=== PATIENT | male | born 1995 | race Caucasian/White ===

== ENCOUNTER 2017-11-17 15:09 | Emergency (ER) | payer OTHER ==
[2017-11-17] MEDS ORDERED: TORAdol 30 mg Injection IV ONE (15:17)
[2017-11-17] MEDS ORDERED: Pepcid 20 MG VIAL IV ONE ×2 (15:17→15:23)
[2017-11-17] MEDS ORDERED: Vistaril 50 MG/ML IM ONE (15:18)
[2017-11-17] MEDS ORDERED: Sodium Chloride 0.9% 1000 ML 1,000 ML IV STA (15:19)
[2017-11-17] MEDS ORDERED: VISTARIL 100MG/2ML IM ONE (15:22)
[2017-11-17] MEDS ORDERED: TORAdol 30 mg Injection ONE (15:22)
[2017-11-17] MEDS ORDERED: Sodium Chloride 0.9% 1000 ML 1,000 ML ONE (15:23)
--- NOTE | 2017-11-17 15:29 | ERPHSYRPT ---
- History of Present Illness Time Seen by Provider: 11/17/17 15:10 Source: patient, family () Patient Subjective Stated Complaint: PT states "I was woke up at 5 am this morning and had horrible chest pain. I thought it was acid reflux and drank some milk but that did not help. The pain goes into my sides and down into my legs." Triage Nursing Assessment: Pt alert and oriented X 3, skin pwd. pt ambulates without difficulty, able to speak in clear full sentence. No apparent respiratory distress. Physician History: CC: chest pain Hx: 22 y/o patient of Dr Oh reports a hx of DM but does not take medications as instructed due to his insurance. He works at [employer]. He has feeling of chest pain. Went home from work yesterday and had chills. He thought he had reflux and made himself vomit. No cough. He is a smoker. Reports former drug use. Not short of air. Pain all over chest. Denies fever but has mylagias and muscle aches. Reports muscle cramp yesterday from the right nipple to the neck to the top of his head. He had his rub the top of his head. Timing/Duration: today, yesterday Severity: moderate Allergies/Adverse Reactions: Penicillins Allergy (Mild, Verified 08/31/14 06:00) Home Medications: No Reportable Medications [No Reported Medications] 11/17/17 [History] Hx Tetanus, Diphtheria Vaccination/Date Given: Yes Hx Influenza Vaccination/Date Given: No Hx Pneumococcal Vaccination/Date Given: No Immunizations Up to Date: Yes - Review of Systems Constitutional: Chills, Malaise, No Fever Eyes: No Symptoms Ears, Nose, & Throat: No Throat Pain Respiratory: No Cough, No Dyspnea Cardiac: Chest Pain Abdominal/Gastrointestinal: Vomiting (forced X 1), No Abdominal Pain, No Nausea , No Diarrhea Genitourinary Symptoms: No Dysuria Skin: No Rash Neurological: Headache, No Focal Weakness, No Parasthesia Psychological: Drug Abuse (formerly) All Other Systems: Reviewed and Negative - Past Medical History Pertinent Past Medical History: Yes Neurological History: No Pertinent History ENT History: No Pertinent History Cardiac History: No Pertinent History Respiratory History: No Pertinent History Endocrine Medical History: Diabetes Type II Musculoskeletal History: No Pertinent History GI Medical History: No Pertinent History History: No Pertinent History Psycho-Social History: No Pertinent History Male Reproductive Disorders: No Pertinent History - Past Surgical History Past Surgical History: No Neuro Surgical History: No Pertinent History Cardiac: No Pertinent History Respiratory: No Pertinent History Gastrointestinal: No Pertinent History Genitourinary: No Pertinent History Musculoskeletal: No Pertinent History - Social History Smoking Status: Current every day smoker How long have you smoked: years Exposure to second hand smoke: Yes Drug Use: none Patient Lives Alone: No Significant Family History: no pertinent family hx - Nursing Vital Signs Nursing Vital Signs: Initial Vital Signs Temperature 97.3 F 11/17/17 15:11 Pulse Rate 70 11/17/17 15:11 Respiratory Rate 18 11/17/17 15:11 Blood Pressure 136/97 11/17/17 15:11 O2 Sat by Pulse Oximetry 98 11/17/17 15:11 Pain Scale Pain Intensity 10 - Physical Exam General Appearance: alert, other (ambulatory, anxious, hypersensitive pain all over his body when touched everywhere) Eye Exam: PERRL/EOMI Ears, Nose, Throat Exam: normal ENT inspection, moist mucous membranes Neck Exam: normal inspection, non-tender, supple Respiratory Exam: normal breath sounds Cardiovascular Exam: regular rate/rhythm, No murmur, No friction rub, No gallop Gastrointestinal/Abdomen Exam: soft, No tenderness, No distention Male Genitalia Exam: normal genitalia Back Exam: normal inspection, No CVA tenderness, No vertebral tenderness Extremity Exam: normal inspection, normal range of motion Neurologic Exam: alert, oriented x 3, cooperative, smt operator II-XII nml as tested, sensation nml, No motor deficits Skin Exam: warm, dry, No rash SpO2 Interpretation: normal SpO2: 98 Oxygen Delivery: Room Air - Course Nursing assessment & vital signs reviewed: Yes EKG Interpreted by Me: RATE (73), Sinus Rhythm, NORMAL AXIS, NORMAL INTERVALS ( QTc 421), 1st degree AV Block, NORMAL QRS, NORMAL ST-T - Radiology Exams cxr X-ray Interpretation: Teleradiologist Report, Negative (minimal bony thoracic degenerative changes) Ordered Tests: Active Orders 24 hr Category Date Time Status Clean Catch Urine Specimen STAT Care 11/17/17 15:17 Active EKG-ER Only STAT Care 11/17/17 15:17 Active IV Insertion STAT Care 11/17/17 15:17 Active CHEST 2 VIEWS (PA AND LAT) Stat Exams 11/17/17 15:17 Completed CBC W DIFF Stat Lab 11/17/17 15:32 Completed CMP Routine Lab 11/17/17 15:32 Completed LIPASE Routine Lab 11/17/17 15:32 Completed Manual Differential NC Stat Lab 11/17/17 15:32 Completed TROPONIN Q3H Lab 11/17/17 15:32 Completed TROPONIN Q3H Lab 11/17/17 18:30 Ordered TROPONIN Q3H Lab 11/17/17 21:30 Ordered TROPONIN Q3H Lab 11/18/17 00:30 Ordered TROPONIN Q3H Lab 11/18/17 03:30 Ordered UA W/RFX UR CULTURE Stat Lab 11/17/17 16:50 Completed Urine Triage Profile Stat Lab 11/17/17 16:50 Completed Medication Summary Discontinued Medications Generic Name Dose Route Start Last Admin Trade Name Freq PRN Reason Stop Dose Admin Famotidine 20 mg 11/17/17 15:17 11/17/17 15:24 Pepcid 20 Mg Vial IV 11/17/17 15:18 20 mg STAT ONE Administration Famotidine Confirm 11/17/17 15:23 Pepcid 20 Mg Vial Administered 11/17/17 15:24 Dose 20 mg IV .STK-MED ONE Hydroxyzine HCl 50 mg 11/17/17 15:18 11/17/17 15:25 Vistaril 50 Mg/Ml IM 11/17/17 15:19 50 mg STAT ONE Administration Hydroxyzine HCl Confirm 11/17/17 15:22 Vistaril 100mg/2ml Administered 11/17/17 15:23 Dose 100 mg IM .STK-MED ONE Sodium Chloride 1,000 mls @ 999 mls/hr 11/17/17 15:19 11/17/17 15:24 Sodium Chloride 0.9% 1000 Ml IV 11/17/17 16:19 999 mls/hr .Q1H1M STA Administration Sodium Chloride Confirm 11/17/17 15:23 Sodium Chloride 0.9% 1000 Ml Administered 11/17/17 15:24 Dose 1,000 mls @ ud .ROUTE .STK-MED ONE Ketorolac Tromethamine 30 mg 11/17/17 15:17 11/17/17 15:24 Toradol 30 Mg Injection IV 11/17/17 15:18 30 mg STAT ONE Administration Ketorolac Tromethamine Confirm 11/17/17 15:22 Toradol 30 Mg Injection Administered 11/17/17 15:23 Dose 30 mg .ROUTE .STK-MED ONE Lab/Rad Data: Laboratory Result Diagrams 11/17/17 15:32 11/17/17 15:32 Laboratory Results 11/17/17 11/17/17 11/17/17 Range/Units 16:50 16:50 15:32 WBC (4.0-10.5) K/mm3 RBC (4.1-5.6) M/mm3 Hgb (12.5-18.0) gm/dl Hct (42-50) % MCV (78-100) fl MCH (26-32) pg MCHC (32-36) g/dl RDW (11.5-14.0) % Plt Count (150-450) K/mm3 MPV (6-9.5) fl Segmented Neutrophils (36.-66.) % Band Neutrophils (0.0-2.0) % Lymphocytes (Manual) (24-44) % Monocytes (Manual) (0.0-12.0) % Eosinophils (Manual) (0.00-3.0) % Differential Comment Platelet Estimate (NORMAL) Sodium 137 (136-145) mEq/L Potassium 4.3 (3.5-5.1) mEq/L Chloride 102 (98-107) mEq/L Carbon Dioxide 29.2 (21-32) mEq/L Anion Gap 9.6 (5-15) MEQ/L BUN 8 L (9-20) mg/dL Creatinine 0.90 (0.55-1.30) mg/dl Estimated GFR > 60 ML/MIN Glucose 201 H (70-110) MG/DL Calcium 9.2 (8.5-10.1) mg/dL Total Bilirubin 0.50 (0.2-1.0) mg/dL AST 33 (15-37) U/L ALT 76 (12-78) U/L Alkaline Phosphatase 114 (46-116) U/L Troponin I < 0.017 (0.000-0.056) ng/ml Serum Total Protein 7.7 (6.4-8.2) gm/dL Albumin 3.8 (3.4-5.0) g/dL Lipase 111 (73-393) U/L Ur Collection Type CLEAN CATCH Urine Color YELLOW (YELLOW) Urine Appearance CLEAR (CLEAR) Urine pH 6.0 (5-6) Ur Specific Kiln 1.020 (1.005-1.025) Urine Protein NEGATIVE (Negative) Urine Ketones NEGATIVE (NEGATIVE) Urine Blood NEGATIVE (0-5) Andrew/ul Urine Nitrite NEGATIVE (NEGATIVE) Urine Bilirubin NEGATIVE (NEGATIVE) Urine Urobilinogen NORMAL (0-1) mg/dL Ur Leukocyte Esterase NEGATIVE (NEGATIVE) Urine Culture Reflexed NO (NO) Urine Glucose 1000 (NEGATIVE) mg/dL Urine Opiates Level NEG. (NEGATIVE) Ur Methadone NEG. (NEGATIVE) Urine Barbiturates NEG. (NEGATIVE) Ur Phencyclidine (PCP) NEG. (NEGATIVE) Urine Amphetamine POS. (NEGATIVE) U Benzodiazepine Level NEG. (NEGATIVE) Urine Cocaine NEG. (NEGATIVE) Urine Marijuana (THC) NEG. (NEGATIVE) Specimen Received 11/17/2017 1650 11/17/17 Range/Units 15:32 WBC 10.5 (4.0-10.5) K/mm3 RBC 5.21 (4.1-5.6) M/mm3 Hgb 16.1 (12.5-18.0) gm/dl Hct 46.8 (42-50) % MCV 89.8 (78-100) fl MCH 30.9 (26-32) pg MCHC 34.4 (32-36) g/dl RDW 14.7 H (11.5-14.0) % Plt Count 151 (150-450) K/mm3 MPV 12.4 H (6-9.5) fl Segmented Neutrophils 61 (36.-66.) % Band Neutrophils 1 (0.0-2.0) % Lymphocytes (Manual) 22 L (24-44) % Monocytes (Manual) 15 H (0.0-12.0) % Eosinophils (Manual) 1 (0.00-3.0) % Differential Comment NORMAL Platelet Estimate NORMAL (NORMAL) Sodium (136-145) mEq/L Potassium (3.5-5.1) mEq/L Chloride (98-107) mEq/L Carbon Dioxide (21-32) mEq/L Anion Gap (5-15) MEQ/L BUN (9-20) mg/dL Creatinine (0.55-1.30) mg/dl Estimated GFR ML/MIN Glucose (70-110) MG/DL Calcium (8.5-10.1) mg/dL Total Bilirubin (0.2-1.0) mg/dL AST (15-37) U/L ALT (12-78) U/L Alkaline Phosphatase (46-116) U/L Troponin I (0.000-0.056) ng/ml Serum Total Protein (6.4-8.2) gm/dL Albumin (3.4-5.0) g/dL Lipase (73-393) U/L Ur Collection Type Urine Color (YELLOW) Urine Appearance (CLEAR) Urine pH (5-6) Ur Specific Kiln (1.005-1.025) Urine Protein (Negative) Urine Ketones (NEGATIVE) Urine Blood (0-5) Andrew/ul Urine Nitrite (NEGATIVE) Urine Bilirubin (NEGATIVE) Urine Urobilinogen (0-1) mg/dL Ur Leukocyte Esterase (NEGATIVE) Urine Culture Reflexed (NO) Urine Glucose (NEGATIVE) mg/dL Urine Opiates Level (NEGATIVE) Ur Methadone (NEGATIVE) Urine Barbiturates (NEGATIVE) Ur Phencyclidine (PCP) (NEGATIVE) Urine Amphetamine (NEGATIVE) U Benzodiazepine Level (NEGATIVE) Urine Cocaine (NEGATIVE) Urine Marijuana (THC) (NEGATIVE) Specimen Received - Progress Progress Note: 11/17/17 17:26 Pt stable. Very sleepy but normal after vistaril. He reports taking laurel adderall earlier in the week. Advised against drug use. Will follow up with Dr Oh. Needs work slip. Counseled pt/family regarding: lab results, diagnosis, need for follow-up, rad results - Departure Time of Disposition: 17:27 Departure Disposition: Home Clinical Impression: Atypical chest pain, amphetamine use Condition: Stable Critical Care Time: No Referrals: CHELY OH MD [Primary Care Provider] - Instructions: Atypical Chest Pain Additional Instructions: No driving tonite and stay with family. Follow up this week with Dr Oh. You need to have your sugars checked and managed. Return for problems or concerns. Avoid amphetamine use.
[2017-11-17 15:39] LABS: Hematocrit 46.8 % (42-50); Hemoglobin 16.1 gm/dl (12.5-18.0); Mean Cell Volume 89.8 fl (78-100); Mean Corpuscular Hemoglobin 30.9 pg (26-32); Mean Corpuscular Hgb Concent. 34.4 g/dl (32-36); Mean Platelet Volume 12.4 fl (6-9.5); Platelet Count 151 K/mm3 (150-450); Red Blood Count 5.21 M/mm3 (4.1-5.6); Red Cell Distribution Width 14.7 % (11.5-14.0); White Blood Count 10.5 K/mm3 (4.0-10.5)
--- NOTE | 2017-11-17 15:49 | XRAY ---
Indication: Chest pain. Comparison: None PA/lateral chest demonstrates normal heart and lungs. Bony thorax intact with minimal lower thoracic degenerative changes.
[2017-11-17 15:57] LABS: ALBUMIN 3.8 g/dL (3.4-5.0); ALKALINE PHOSPHATASE 114 U/L (46-116); ANION GAP 9.6 MEQ/L (5-15); BLOOD UREA NITROGEN 8 mg/dL (9-20); CHLORIDE 102 mEq/L (98-107); Calcium 9.2 mg/dL (8.5-10.1); Carbon Dioxide 29.2 mEq/L (21-32); EST GLOMERULAR FILTRATION RATE > 60 ML/MIN; Glucose 201 MG/DL (70-110); LIPASE 111 U/L (73-393); Potassium 4.3 mEq/L (3.5-5.1); SGOT/AST 33 U/L (15-37); SGPT/ALT 76 U/L (12-78); SODIUM 137 mEq/L (136-145); Total Protein 7.7 gm/dL (6.4-8.2)
[2017-11-17 16:05] LABS: TROPONIN < 0.017 ng/ml (0.000-0.056)
[2017-11-17 16:41] LABS: BAND 1 % (0.0-2.0); Eosinophil 1 % (0.00-3.0); Lymphocytes 22 % (24-44); Monocyte 15 % (0.0-12.0); Neutrophils 61 % (36.-66.); Platelet Estimate NORMAL (NORMAL); Total Cells Counted 100
[2017-11-17 17:05] LABS: Amphetamine,Urine POS. (NEGATIVE); Barbiturate,Urine NEG. (NEGATIVE); Benzodiazepine,Urine NEG. (NEGATIVE); Cocaine,Urine NEG. (NEGATIVE); Methadone,Urine NEG. (NEGATIVE); Opiate,Urine NEG. (NEGATIVE); PCP,Urine NEG. (NEGATIVE); THC,Urine NEG. (NEGATIVE)
[2017-11-17 17:15] LABS: Appearance CLEAR (CLEAR); Glucose 1000 mg/dL (NEGATIVE); Leukocyte Esterase NEGATIVE (NEGATIVE); Nitrite NEGATIVE (NEGATIVE); Protein,Urine Dip NEGATIVE (Negative)
[2017-11-17 17:16] LABS: Bilirubin NEGATIVE (NEGATIVE); Blood NEGATIVE Ery/ul (0-5); Ketones NEGATIVE (NEGATIVE); Urobilinogen NORMAL mg/dL (0-1)
[2017-11-17 18:03] VITALS: BP 131/80; PULSE 90; O2SAT 96
== END 2017-11-17 18:00 | disposition home or self-care (01) ==
LOC: ED 15:09
DX: R07.89 Other chest pain (principal); F15.90 Other stimulant use, unspecified, uncomplicated
CPT/HCPCS: 36000; 36415; 71046; 80053; 80307; 81002; 83690; 84484; 85025; 93005; 96360; 96372; 96374; 96375; 99284; J1885; J3410

== ENCOUNTER 2022-12-18 23:31 | Emergency (ER) | payer OTHER ==
[2022-12-18 23:42] VITALS: O2SAT 99
[2022-12-19] MEDS ORDERED: Adacel Vial IM ONE ×2 (00:03→00:09)
[2022-12-19] MEDS ORDERED: Cipro 500 MG ONE (00:09)
--- NOTE | 2022-12-19 00:10 | ERPHSYRPT ---
- History of Present Illness Time Seen by Provider: 12/19/22 00:07 Source: patient Exam Limitations: no limitations Patient Subjective Stated Complaint: stepped on a nail around 2pm today Triage Nursing Assessment: pt ambulated into ER without diff. Pt stepped on a nail around 2pm today. Pt has a puncture wound to bottom of rt foot, no bleeding or drainage noted. Foot wound is pink with puncture site noted and slight soft tissue edema. Pt able to move foot without diff. Pt is type I diabetic. Physician History: Patient is a 27-year-old male history of type 1 diabetes presents to our ED for evaluation. Patient states he stepped on a jude nail at approximately 2 PM today, 10 hours prior to arrival. Patient had other things to do before coming to the ED. Patient describes a dull ache sensation in the plantar aspect of right forefoot. Patient states the nail came out of his foot in its entirety. Patient declined an x-ray states its not needed. Patient's tetanus is not up-to-date. Patient requesting antibiotics. The nail went through his shoe and into his foot. Patient immediately withdrew his foot. No other injuries reported. Symptoms are mild to moderate in intensity. There is some soft t issue tenderness and swelling around the puncture site. Patient is a smoker. Smoking cessation discussed. Patient's uncle was at the bedside. They voiced no other complaints or concerns at this time. Portions of this note were created with voice recognition technology. There may be grammatical, spelling, punctuation or sound alike errors Timing/Duration: today Severity: moderate Modifying Factors: Improves With: nothing Associated Symptoms: denies symptoms Allergies/Adverse Reactions: Penicillins Allergy (Severe, Verified 12/18/22 23:49) Tightness of Throat Home Medications: Buprenorphine HCl/Naloxone HCl [Buprenorphine-Nalox 8-2 mg Tab] 2 tab PO DAILY 12/18/22 [History] Hx Tetanus, Diphtheria Vaccination/Date Given: No Hx Influenza Vaccination/Date Given: No Hx Pneumococcal Vaccination/Date Given: No Travel Risk - International Travel Have you traveled outside of the country in past 3 weeks: No - Coronavirus Screening Are you exhibiting any of the following symptoms?: No Close contact with a COVID-19 positive Pt in past 14-21 Days: No - Vaccine Status Have you recieved a Covid-19 vaccination: No - Review of Systems Constitutional: No Symptoms, No Fever, No Chills Eyes: No Symptoms Ears, Nose, & Throat: No Symptoms Respiratory: No Symptoms, No Cough, No Dyspnea Cardiac: No Symptoms, No Chest Pain, No Edema, No Syncope Abdominal/Gastrointestinal: No Symptoms, No Abdominal Pain, No Nausea, No Vomiting, No Diarrhea Genitourinary Symptoms: No Symptoms, No Dysuria Musculoskeletal: No Symptoms, No Back Pain, No Neck Pain Skin: No Symptoms, No Rash Neurological: No Symptoms, No Dizziness, No Focal Weakness, No Sensory Changes Psychological: No Symptoms Endocrine: No Symptoms Hematologic/Lymphatic: No Symptoms Immunological/Allergic: No Symptoms All Other Systems: Reviewed and Negative - Past Medical History Pertinent Past Medical History: Yes Neurological History: No Pertinent History ENT History: No Pertinent History Cardiac History: No Pertinent History Respiratory History: No Pertinent History Endocrine Medical History: Diabetes Type I Musculoskeletal History: No Pertinent History GI Medical History: No Pertinent History History: No Pertinent History Psycho-Social History: No Pertinent History Male Reproductive Disorders: No Pertinent History - Past Surgical History Past Surgical History: No Neuro Surgical History: No Pertinent History Cardiac: No Pertinent History Respiratory: No Pertinent History Gastrointestinal: No Pertinent History Genitourinary: No Pertinent History Musculoskeletal: No Pertinent History - Social History Smoking Status: Current every day smoker How long have you smoked: 20 yrs Exposure to second hand smoke: Yes Drug Use: none Patient Lives Alone: No Significant Family History: no pertinent family hx - Nursing Vital Signs Nursing Vital Signs: Initial Vital Signs Temperature 98 F 12/18/22 23:40 Pulse Rate 98 H 12/18/22 23:40 Respiratory Rate 20 12/18/22 23:40 Blood Pressure 159/70 12/18/22 23:40 O2 Sat by Pulse Oximetry 99 12/18/22 23:40 Pain Scale Pain Intensity 5 - Physical Exam General Appearance: no apparent distress, alert Eye Exam: PERRL/EOMI, eyes nml inspection Ears, Nose, Throat Exam: normal ENT inspection, TMs normal, pharynx normal, moist mucous membranes Neck Exam: normal inspection, non-tender, supple, full range of motion Respiratory Exam: normal breath sounds, lungs clear, airway intact, No respiratory distress Cardiovascular Exam: regular rate/rhythm, normal heart sounds, normal peripheral pulses Gastrointestinal/Abdomen Exam: soft, normal bowel sounds, No tenderness, No mass Back Exam: normal inspection, normal range of motion, No CVA tenderness, No vertebral tenderness Extremity Exam: normal inspection, normal range of motion, pelvis stable, other (Puncture wound to the plantar aspect of right forefoot. Patient denies foreign body sensation. Involved extremities neurovascular intact distally. Compartments are soft. Cap refill less than 2 seconds. Patient is involved e xtremity currently soaking in Hibiclens.) Neurologic Exam: alert, oriented x 3, cooperative, normal mood/affect, sensation nml, No motor deficits Skin Exam: normal color, warm, dry, No rash Lymphatic Exam: No adenopathy SpO2 Interpretation: normal SpO2: 99 O2 Delivery: Room Air - Course Nursing assessment & vital signs reviewed: Yes Ordered Tests: Medication Summary Generic Name Dose Route Start Last Admin Trade Name Freq PRN Reason Stop Dose Admin Ciprofloxacin 500 mg 12/19/22 10:00 Ciprofloxacin 500 Mg Tablet PO 01/18/23 09:59 BID [place]IS Discontinued Medications Generic Name Dose Route Start Last Admin Trade Name Freq PRN Reason Stop Dose Admin Diphtheria/Tetanus/Acell Pertussis 0.5 ml 12/19/22 00:03 Tdap --Diph,Pertuss(Acell),Tet Vac/Pf 0.5 Ml Vial IM 12/19/22 00:04 .ONCE ONE - Progress Progress: improved Progress Note: Patient is a 27-year-old male type I diabetic presents to our ED for evaluation and treatment of a nail puncture wound to the plantar aspect of his right forefoot. Injury occurred approximately 10 hours prior to arrival. Tetanus is not up-to-date. Patient denies foreign body sensation to the involved foot. Patient denies the possibility of foreign body in his foot. Patient states that after he withdrew his foot from the nail the nail was intact in its entirety. Patient does not want a x-ray of his foot. Patient states he wants antibiotics. Patient is a smoker. We discussed smoking cessation. Physical exam reveals some swelling at the puncture site. Complexity of problems addressed is straightforward. The nail went through patient's shoe. There is a high risk of pseudomonal infection. Patient received a dose of ciprofloxacin in our ED. A prescription for the same was forwarded to patient's pharmacy. Complexity of data reviewed and analyzed is none. Risk of complication and or morbidity and mortality of patient management is moderate as patient received a prescription grade medication/antibiotic. Patient's wound was irrigated by JEANNIE. Patient understands the importance of follow-up. He agrees to follow-up with his primary care doctor within 48 hours for reevaluation. Plan of care was agreed upon via shared decision making. Time spent to discharge is approximately 10 minutes. Vital stable. Portions of this note were created with voice recognition technology. There may be grammatical, spelling, punctuation or sound alike errors 12/19/22 00:11 Counseled pt/family regarding: diagnosis, need for follow-up - Departure Departure Disposition: Home Clinical Impression: Nail wound of foot Condition: Stable Critical Care Time: No Referrals: CHELY OH MD [Primary Care Provider] - Follow up/PCP as directed Additional Instructions: Discharge/Care Plan MICKEY BOWDEN was seen on 12/19/22 in the Emergency Room. The patient was counseled regarding Diagnosis,Lab results, Imaging studies, need for follow up and when to return to the Emergency Room. Prescriptions given: Discharge Note I have spoken with the patient and/or caregivers. I have explained the patient's condition, diagnosis and treatment plan based on the information available to me at this time. I have answered the patient's and/or caregiver's questions and addressed any concerns. The patient and/or caregivers have as good understanding of the patient's diagnosis, condition and treatment plan as can be expected at this point. The vital signs have been stable. The patient's condition is stable and appropriate for discharge from the emergency department. The patient will pursue further outpatient evaluation with the primary care physician or other designated or consulting physician as outlined in the discharge instructions. The patient and/or caregivers are agreeable to this plan of care and follow-up instructions have been explained in detail. The patient and/or caregivers have received these instruction. The patient/and or caregivers are aware that any significant change in condition or worsening of symptoms should prompt an immediate return to this or the closest emergency department or call 911. Prescriptions: Ciprofloxacin [Cipro 500 MG] 500 mg PO BID #14 tablet
[2022-12-19 00:12] VITALS: BP 145/122; PULSE 99
[2022-12-19] MEDS ORDERED: Cipro 500 MG PO SCH (10:00)
== END 2022-12-19 00:25 | disposition home or self-care (01) ==
LOC: ED 23:31
DX: S91.331A Puncture wound without foreign body, right foot, initial encounter (principal); W45.0XXA Nail entering through skin, initial encounter; W22.09XA Striking against other stationary object, initial encounter; E10.9 Type 1 diabetes mellitus without complications; Z79.891 Long term (current) use of opiate analgesic; Z28.310 Unvaccinated for COVID-19; Z72.0 Tobacco use
CPT/HCPCS: 90471; 90715; 99282; A9270-GY

== ENCOUNTER 2025-08-12 18:52 | Emergency (ER) | payer OTHER ==
--- NOTE | 2025-08-12 19:02 | ERPHSYRPT ---
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 In the last 2 to 3 days has been worsening redness and pain primarily right eye at the 9 o'clock position. There is tenderness present but he does not want any narcotics as he is on Suboxone. Location: right eye Severity: mild Apparent Injury: yes Associated Symptoms: burning, sensitivity to light, redness, foreign body sensation (9 o'clock position right eye) Visual Assistive Devices: None Allergies/Adverse Reactions: Penicillins Allergy (Severe, Verified 08/12/25 19:03) Tightness of Throat Home Medications: Buprenorphine HCl/Naloxone HCl [Buprenorphine-Nalox 8-2 mg Tab] 2 tab PO DAILY 12/18/22 [History] Hx Tetanus, Diphtheria Vaccination/Date Given: No Hx Influenza Vaccination/Date Given: No Hx Pneumococcal Vaccination/Date Given: No Travel Risk - International Travel Have you traveled outside of the country in past 3 weeks: No - Emerging Infectious Disease Are you exhibiting symptoms associated with any current EIDs: No - Review of Systems Constitutional: No Symptoms Eyes: Eye Pain (Right eye), Eye Redness (Right eye), Tearing (Right eye), Foreign Body Sensation (Right eye9 o'clock position) Ears, Nose, & Throat: No Symptoms Respiratory: No Symptoms Cardiac: No Symptoms Abdominal/Gastrointestinal: No Symptoms Genitourinary Symptoms: No Symptoms Musculoskeletal: No Symptoms Skin: No Symptoms Neurological: No Symptoms Psychological: No Symptoms Endocrine: No Symptoms Hematologic/Lymphatic: No Symptoms Immunological/Allergic: No Symptoms All Other Systems: Reviewed and Negative - Past Medical History Pertinent Past Medical History: Yes Neurological History: No Pertinent History ENT History: No Pertinent History Cardiac History: No Pertinent History Respiratory History: No Pertinent History Endocrine Medical History: Diabetes Type I Musculoskeletal History: No Pertinent History GI Medical History: No Pertinent History History: No Pertinent History Psycho-Social History: No Pertinent History Male Reproductive Disorders: No Pertinent History - Past Surgical History Past Surgical History: No Neuro Surgical History: No Pertinent History Cardiac: No Pertinent History Respiratory: No Pertinent History Gastrointestinal: No Pertinent History Genitourinary: No Pertinent History Musculoskeletal: No Pertinent History Significant Family History: no pertinent family hx - Social History Smoking Status: Current every day smoker How long have you smoked: 20 yrs Exposure to second hand smoke: Yes Drug Use: none Patient Lives Alone: No - Nursing Vital Signs Nursing Vital Signs: Initial Vital Signs Pulse Rate 72 08/12/25 19:02 Blood Pressure 149/88 08/12/25 19:02 O2 Sat by Pulse Oximetry 99 08/12/25 19:02 Pain Scale Pain Intensity 5 - Physical Exam General Appearance: no apparent distress, alert Eye Exam: right eye: conjunctival inflammation, left eye: normal inspection, bilateral eye: PERRL, EOMI Ears, Nose, Throat Exam: normal ENT inspection, TMs normal, pharynx normal, moist mucous membranes Neck Exam: normal inspection, non-tender, supple, full range of motion Respiratory Exam: airway intact, No chest tenderness, No respiratory distress Gastrointestinal Exam: No tenderness Extremity Exam: normal inspection, normal range of motion, pelvis stable Neurologic: alert, oriented x 3, cooperative, client development consultant II-XII nml as tested, normal mood/affect, nml cerebellar function, nml station & gait, sensation nml Skin Exam: normal color, warm, dry Lymphatic: No adenopathy SpO2 Interpretation: normal O2 Delivery: Room Air Procedures - Eye Procedure Time of Procedure: 19:45 Timeout: Performed Tetracaine Drops Administered: Yes Antibiotic Oinment/Drps Admin: right eye - Course Nursing assessment & vital signs reviewed: Yes Ordered Tests: Medication Summary Discontinued Medications Generic Name Dose Route Start Last Admin Trade Name Traci PRN Reason Stop Dose Admin Acetaminophen 650 mg 08/12/25 20:00 Acetaminophen 325 Mg Tablet PO 08/12/25 20:01 STAT ONE Erythromycin 1 gm 08/12/25 20:00 Erythromycin Base 1 Gm Tube Eye Ointment OP 08/12/25 20:01 STAT STA Ibuprofen 600 mg 08/12/25 20:00 Ibuprofen 600 Mg Tablet PO 08/12/25 20:01 STAT ONE Tetracaine HCl 4 ml 08/12/25 19:59 Tetracaine Hcl/Pf 4 Ml Bottle OP 08/12/25 20:00 STAT STA - Progress Progress: improved, re-examined Progress Note: 08/12/25 20:05 My medical decision making and the assignment of low complexity of this patient's medical issue today is based on review of the patient's past medical history, reviewed patient's medication list, reviewed patient drug allergy list, history of present illness and physical findings on examination. The workup in this patient does not necessitate radiographic or laboratory studies. Differential diagnosis includes but is not limited to conjunctivitis, foreign body, corneal abrasion Counseled pt/family regarding: diagnosis, need for follow-up Medical Desision Making - Independent Historian Additional History obtained from: Spouse - Diagnostic Testing Diagnostic test were ordered, analyzed, and reviewed by me: No - Risk of complications Low Risk: Low risk of morbidity from additional dx testing or treatment The pt has a mod risk of morbidity or mortality based on: Need for prescription drug management - Departure Departure Disposition: Home Clinical Impression: Right corneal abrasion Condition: Stable Critical Care Time: No Referrals: CHELY OH MD [Primary Care Provider, [facility]] - Follow up/PCP as directed Additional Instructions: Use Tylenol and ibuprofen for pain control. Placed the antibiotic ointment in the right eye 3-4 times a day for the next 3 to 5 days. Call an hydrochloric acid operator on 08/15/2025, to make arrangements for follow-up appointment to be seen next week on Friday or Friday. Prescriptions: Erythromycin Base 3.5 gm [Erythromycin 3.5 GM OPHTH.] 3.5 gm OP QID #1 unit
[2025-08-12 19:14] VITALS: RESP 16; TEMP 96.5; O2SAT 99
[2025-08-12] MEDS ORDERED: TETRACAINE 0.5% STERI-UNIT SOL OP ONE (20:02)
[2025-08-12] MEDS ORDERED: TYLENOL 325 MG ONE (20:03)
[2025-08-12] MEDS ORDERED: Erythromycin 1 GM ONE (20:03)
[2025-08-12] MEDS ORDERED: MOTRIN 600 MG ONE (20:03)
[2025-08-12] MEDS: TETRACAINE 0.5% STERI-UNIT SOL OP STA (20:04)
[2025-08-12] MEDS: Erythromycin 1 GM OP STA (20:04)
[2025-08-12] MEDS: MOTRIN 600 MG PO ONE (20:04)
[2025-08-12] MEDS: TYLENOL 325 MG PO ONE (20:04)
[2025-08-12 20:08] VITALS: BP 118/75; PULSE 68
== END 2025-08-12 20:26 | disposition home or self-care (01) ==
LOC: ED 18:52
DX: S05.01XA Injury of conjunctiva and corneal abrasion without foreign body, right eye, initial encounter (principal); W20.8XXA Other cause of strike by thrown, projected or falling object, initial encounter; H57.11 Ocular pain, right eye; Z79.891 Long term (current) use of opiate analgesic; Z79.899 Other long term (current) drug therapy; Z72.0 Tobacco use